=== PATIENT | male | born 1955 | race Caucasian/White ===

== ENCOUNTER 2018-02-07 16:10 | Emergency (ER) | payer BC ==
[2018-02-07 17:08] LABS: CHLORIDE,CL 99 mEq/L (98-106); SODIUM,NA 136 mEq/L (136-145)
--- NOTE | 2018-02-07 18:12 | EDM.PDOC ---
ED HPI GENERAL MEDICAL PROBLEM - General Chief Complaint: General Stated Complaint: DIZZY/HEADACHES/STIFF NECK Time Seen by Provider: 02/07/18 16:55 Source of Information: Reports: Patient History Limitations: Reports: No Limitations - History of Present Illness INITIAL COMMENTS - FREE TEXT/NARRATIVE: Luis Fernando is a 62 yo gentleman who presents ambulatory to ED, accompanied by his , with reports of feeling "unsteady." He states he has felt unsteady for the past week or so becoming significantly worse on Tuesday. His states that she had the "flu" and was unsteady for a couple days so they figured that is what happened to him as well. He states he doesn't feel as if the room is spinning, more so, just unsteady. He has a difficult time keeping his balance for about 50-75ft and then it seems to improve. Denies any fall or injury at onset. However, has fallen several times in the past week but denies hitting his head. He was having headaches as well that were very mild and found if he took ibuprofen it seemed to help. He states the headaches have subsided completely now. He denies any vision changes. Denies any chest pain, nausea or vertigo. He started using a cane, which he has never used before to help with being able to walk. yesterday his said he will stumble to the side and he can't keep himself up. Denies having any pain at this time. states she is worried that he had a stroke with all his other medical issues. He has history of diabetes, prostrate cancer and aortic valve replacement. States he underwent a prostectomy roughly 10 years ago and is followed by urologist at [facility] in [place]. States he doctors at [facility] for all his medical care. - Related Data Allergies Allergy/AdvReac Type Severity Reaction Status Date / Time No Known Allergies Allergy Verified 02/07/18 16:28 Home Meds: Home Meds Enalapril [Vasotec] 10 mg PO DAILY 05/21/13 [History] Insulin Aspart [Novolog Flexpen] 1 - 10 unit SQ TIDAC 05/21/13 [History] Insulin Glarg,Human.Rec.Analog [Lantus Solostar] 30 units SUBCUT BEDTIME [History] atorvaSTATin [Lipitor] 40 mg PO DAILY 05/21/13 [History] Aspirin [Ecotrin] 325 mg PO DAILY 02/07/18 [History] Carvedilol 12.5 mg PO BID 02/07/18 [History] Past Medical History Cardiovascular History: Reports: CAD, Heart Valve Replacement, High Cholesterol , Hypertension Musculoskeletal History: Reports: Arthritis, Back Pain, Chronic Psychiatric History: Reports: Other (See Below) Other Psychiatric History: claustrophobic Endocrine/Metabolic History: Reports: IDDM Oncologic (Cancer) History: Reports: Prostate - Past Surgical History HEENT Surgical History: Reports: LASIK Cardiovascular Surgical History: Reports: Valve Replacement Male Surgical History: Reports: Prostatectomy Social & Family History - Tobacco Use Smoking Status *Q: Current Every Day Smoker Years of Tobacco use: 40 Packs/Tins Daily: 1 - Caffeine Use Caffeine Use: Reports: Coffee - Recreational Drug Use Recreational Drug Use: No - Living Situation & Occupation Living situation: Reports: , with Spouse Occupation: Employed ED ROS GENERAL - Review of Systems Review Of Systems: See Below Constitutional: Denies: Fever, Chills, Weakness, Decreased Appetite HEENT: Reports: No Symptoms. Denies: Hearing Loss, Vision Change Respiratory: Reports: Cough (dry, chronic smoker). Denies: Shortness of Breath , Wheezing, Pleuritic Chest Pain Cardiovascular: Denies: Chest Pain, Blood Pressure Problem, Palpitations, Syncope GI/Abdominal: Reports: No Symptoms : Reports: No Symptoms Musculoskeletal: Reports: No Symptoms Skin: Reports: No Symptoms Neurological: Reports: Headache, Difficulty Walking, Gait Disturbance. Denies: Confusion, Numbness, Paresthesia, Seizure, Syncope, Tremors, Trouble Speaking, Weakness, Change in Speech Psychiatric: Reports: No Symptoms ED EXAM, GENERAL - Physical Exam Exam: See Below Exam Limited By: No Limitations General Appearance: Alert, No Apparent Distress, Other (Luis Fernando is sitting comfortably on examination cart having normal conversation with me. ) Eye Exam: Bilateral Eye: EOMI, Normal Inspection, PERRL Ears: Normal External Exam, Normal Canal, Hearing Grossly Normal, Normal TMs Nose: Normal Inspection, Normal Mucosa, No Blood Throat/Mouth: Normal Inspection, Normal Lips, Normal Teeth, Normal Gums, Normal Oropharynx, Normal Voice, No Airway Compromise Head: Atraumatic, Normocephalic Neck: Normal Inspection, Supple. No: Lymphadenopathy (L), Lymphadenopathy (R) Respiratory/Chest: No Respiratory Distress, Lungs Clear, Normal Breath Sounds, No Accessory Muscle Use Cardiovascular: Regular Rate, Rhythm, Systolic Murmur GI/Abdominal: Normal Bowel Sounds, Soft, Non-Tender, No Organomegaly, No Distention, No Abnormal Bruit Extremities: Normal Inspection Neurological: Alert, Oriented, CN II-XII Intact, Normal Cognition, No Motor/ Sensory Deficits, Abnormal Gait. No: Slow to Respond, Memory Loss Remote Events Psychiatric: Normal Affect, Normal Mood Skin Exam: Warm, Dry, Intact, Normal Color, No Rash EKG INTERPRETATION EKG Date: 02/07/18 Rhythm: NSR QRS: LBBB ST-T: Normal Comparison: NA - No Prior EKG Course - Vital Signs Last Recorded V/S: Last Vital Signs Temp 97.2 F 02/07/18 16:20 Pulse 73 02/07/18 16:20 Resp 16 02/07/18 16:20 BP 155/87 H 02/07/18 16:20 Pulse Ox 97 02/07/18 16:20 - Orders/Labs/Meds Orders: Active Orders 24 hr Category Date Time Status Head wo Cont [CT] Stat Exams 02/07/18 16:36 Taken Labs: Laboratory Tests 02/07/18 02/07/18 02/07/18 Range/Units 16:45 16:45 16:45 WBC 16.2 H (5.0-10.0) 10^3/uL RBC 4.76 (4.50-6.00) 10^6/uL Hgb 15.4 (14.0-18.0) g/dL Hct 44.1 (40.0-54.0) % MCV 92.6 (82.0-94.0) fL MCH 32.4 H (27.0-32.0) pg MCHC 34.9 (33.0-38.0) g/dL RDW Coeff of Ramses 13.7 (11.0-15.0) % Plt Count 195 (150-400) 10^3/uL Neut % (Auto) 76.1 (35-85) % Lymph % (Auto) 9.3 L (10-55) % [place] % (Auto) 11.6 (0-16) % Eos % (Auto) 2.6 (0-5) % Baso % (Auto) 0.4 (0-3) % Neut # (Auto) 12.29 H (1.80-7.00) 10^3/uL Lymph # (Auto) 1.50 (1.00-4.80) 10^3/uL [place] # (Auto) 1.88 H (0.00-0.80) 10^3/uL Eos # (Auto) 0.42 (0.00-0.45) 10^3/uL Baso # (Auto) 0.07 10^3/uL PT 10.3 (9.7-12.3) SEC INR 0.99 (0.92-1.18) APTT 30.2 (23.2-32.3) SEC Sodium (136-145) mEq/L Potassium (3.5-5.0) mEq/L Chloride (98-106) mEq/L Carbon Dioxide (21-32) mmol/L BUN (7-18) mg/dL Creatinine (0.7-1.3) mg/dL Est Cr Clr Drug Dosing mL/min Estimated GFR (MDRD) (>=60) mL/min Glucose (75-99) mg/dL Calcium (8.4-10.1) mg/dL Creatine Kinase (35-232) U/L Troponin I (0.00-0.06) ng/mL Urine Color Yellow (YELLOW) Urine Appearance Clear (CLEAR) Urine pH 5.5 (4.5-8.0) Ur Specific [place] 1.025 H (1.003-1.020) Urine Protein Negative (NEGATIVE) mg/dL Urine Glucose (UA) 500 H (NEGATIVE) mg/dL Urine Ketones 40 H (NEGATIVE) mg/dL Urine Occult Blood Negative (NEGATIVE) Urine Nitrite Negative (NEGATIVE) Urine Bilirubin Negative (NEGATIVE) Urine Urobilinogen 0.2 (0.2-1.0) EU/dL Ur Leukocyte Esterase Negative (NEGATIVE) Urine RBC Not seen (0-5) /HPF Urine WBC 0-5 (0-5) /HPF Ur Squamous Epith Cells Occasional H (NOT SEEN) /HPF Urine Bacteria Few H (NOT SEEN) /HPF Urine Mucus Occasional H (NOT SEEN) /HPF 02/07/18 Range/Units 16:45 WBC (5.0-10.0) 10^3/uL RBC (4.50-6.00) 10^6/uL Hgb (14.0-18.0) g/dL Hct (40.0-54.0) % MCV (82.0-94.0) fL MCH (27.0-32.0) pg MCHC (33.0-38.0) g/dL RDW Coeff of Ramses (11.0-15.0) % Plt Count (150-400) 10^3/uL Neut % (Auto) (35-85) % Lymph % (Auto) (10-55) % [place] % (Auto) (0-16) % Eos % (Auto) (0-5) % Baso % (Auto) (0-3) % Neut # (Auto) (1.80-7.00) 10^3/uL Lymph # (Auto) (1.00-4.80) 10^3/uL [place] # (Auto) (0.00-0.80) 10^3/uL Eos # (Auto) (0.00-0.45) 10^3/uL Baso # (Auto) 10^3/uL PT (9.7-12.3) SEC INR (0.92-1.18) APTT (23.2-32.3) SEC Sodium 136 (136-145) mEq/L Potassium 4.5 (3.5-5.0) mEq/L Chloride 99 (98-106) mEq/L Carbon Dioxide 29 (21-32) mmol/L BUN 15 (7-18) mg/dL Creatinine 0.8 (0.7-1.3) mg/dL Est Cr Clr Drug Dosing 105.08 mL/min Estimated GFR (MDRD) > 60 (>=60) mL/min Glucose 271 H D (75-99) mg/dL Calcium 8.8 (8.4-10.1) mg/dL Creatine Kinase 135 (35-232) U/L Troponin I 0.036 (0.00-0.06) ng/mL Urine Color (YELLOW) Urine Appearance (CLEAR) Urine pH (4.5-8.0) Ur Specific [place] (1.003-1.020) Urine Protein (NEGATIVE) mg/dL Urine Glucose (UA) (NEGATIVE) mg/dL Urine Ketones (NEGATIVE) mg/dL Urine Occult Blood (NEGATIVE) Urine Nitrite (NEGATIVE) Urine Bilirubin (NEGATIVE) Urine Urobilinogen (0.2-1.0) EU/dL Ur Leukocyte Esterase (NEGATIVE) Urine RBC (0-5) /HPF Urine WBC (0-5) /HPF Ur Squamous Epith Cells (NOT SEEN) /HPF Urine Bacteria (NOT SEEN) /HPF Urine Mucus (NOT SEEN) /HPF - Re-Assessments/Exams Free Text/Narrative Re-Assessment/Exam: Lucio has been stable the entire time int he local ED. He hasn't had seizures, headaches, altered mental status. He has been sitting in the chair beside his in normal spirits. GCS upon arrival was 15 and continues to still be 15. Departure - Departure Time of Disposition: 18:45 Disposition: DC/Tfer to Acute Hospital 02 Clinical Impression: Lesion of parietal lobe of brain - Discharge Information Referrals: PCP,None [Primary Care Provider] - - Problem List & Annotations (1) Lesion of parietal lobe of brain SNOMED Code(s): 903258375 Code(s): G93.9 - DISORDER OF BRAIN, UNSPECIFIED Status: Acute Current Visit: Yes - My Orders Last 24 Hours: My Active Orders 02/07/18 16:36 Head wo Cont [CT] Stat - Assessment/Plan Last 24 Hours: My Active Orders 02/07/18 16:36 Head wo Cont [CT] Stat Plan: Consulted with Dr. Montes, Neurosurgeon, at [facility] in [place]. Dr. 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 Advised giving 10mg of Decadron intravenously. He recommended consulting with hospitalist for admission for further evaluation with MRI and oncology consultation. Dr. Son was consulted as well, hospitalist, who kindly accepted transfer. We will give the 10mg of Decadron and will monitor blood sugars en route. Last blood sugar was 281 done at 1847. Risks and benefits discussed with Lucio and his in regards to transfer. Risks of transfer included worsening of condition. MVA, seizures or . Benefits of transfer included specialty care and interventions not provided at this local facility. Risks of non-transfer included lack of specialized treatment/interventions, worsening of condition, . Benefits of non- transfer included staying in familiar environment and close to home. Both Socrates and his verbalized understandng and is in agreement with transfer. Will transfer via [facility].
[2018-02-07] MEDS ORDERED: Dexamethasone 4 MG/ML SDV ONE (18:39)
[2018-02-07] MEDS ORDERED: Dexamethasone 4 MG/ML SDV IVPUSH ONE (18:44)
== END 2018-02-07 19:15 ==
LOC: CC.ED 16:10
DX: G93.9 Disorder of brain, unspecified (principal); I10 Essential (primary) hypertension; I25.10 Atherosclerotic heart disease of native coronary artery without angina pectoris; E11.9 Type 2 diabetes mellitus without complications; F17.210 Nicotine dependence, cigarettes, uncomplicated; Z79.4 Long term (current) use of insulin; Z79.82 Long term (current) use of aspirin
CPT/HCPCS: 36415; 70450; 80048; 81001; 82550; 84484; 85025; 85610; 85730; 93005; 96374; 99285; J1100